=== PATIENT | male | born 1970 | race Caucasian/White ===

== ENCOUNTER 2019-09-23 08:40 | Day surgery (SDC) | payer BC, OTHER ==
[2019-09-21 12:15] VITALS: BMI 23.9
[~2019-09-23 08:40] MED LIST: LACTATED RINGERS 1,000 ML IV SCH; LIDOCAINE 1% (10MG/ML) FOR IV START INTRADERMA PRN
[2019-09-23 08:55] VITALS: RESP 16; TEMP 97.8
[2019-09-23] MEDS ORDERED: PROPOFOL 10 MG/ML 20 ML VIAL IV ONE (09:30)
--- NOTE | 2019-09-23 09:49 | P.PCN ---
Date of Procedure: 09/23/19 Procedure(s) Performed: BRIEF HISTORY: Patient is a 48-year-old pleasant white male scheduled for an elective colonoscopy as a part of screening for colorectal neoplasia. PROCEDURE PERFORMED: Colonoscopy. PREOPERATIVE DIAGNOSIS: Screening for colon cancer. IV sedation per Anesthesia. PROCEDURE: After informed consent was obtained, the patient, was brought into the endoscopy unit. IV sedation was administered by Anesthesia under continuous monitoring. Digital rectal examination was normal. Initially the Olympus CF-160 flexible video colonoscope was then inserted in the rectum, gradually advanced into the cecum without any difficulty. Careful examination was performed as the scope was gradually being withdrawn. Ileocecal valve and the appendiceal orifice were visualized and appeared normal. Prep was excellent. Mucosa of the cecum, ascending colon, transverse colon, descending colon, sigmoid colon, and rectum appeared normal. Retroflexion was performed in the rectum and no lesions were seen. The patient tolerated the procedure well. IMPRESSION: Normal-appearing colon from rectum to cecum with no evidence of colorectal neoplasia RECOMMENDATIONS: Findings of this examination were discussed with the patient as well as his family. He was advised to have a repeat screening colonoscopy in 10 years.
[2019-09-23 10:11] VITALS: BP 107/73; PULSE 78
== END 2019-09-23 10:26 | disposition home or self-care (01) ==
LOC: ORWHC2ENDO 08:40
PROVIDERS: ATTEND Internal Medicine Gastroenterology
DX: Z12.11 Encounter for screening for malignant neoplasm of colon (principal)
CPT/HCPCS: J2704; G0121

== ENCOUNTER 2021-08-31 12:16 | Observation (INO) | payer OTHER ==
[2021-08-31] MEDS ORDERED: ASPIRIN 81 MG PO STA (12:38)
[2021-08-31] MEDS ORDERED: NITROGLYCERIN SL TABS 0.4 MG TAB SUBLINGUAL STA ×3 (12:38)
--- NOTE | 2021-08-31 12:40 | ED ---
General Adult HPI - General Chief complaint: Chest Pain Stated complaint: chest pain Time Seen by Provider: 08/31/21 12:35 Source: patient, RN notes reviewed Mode of arrival: ambulatory Limitations: no limitations - History of Present Illness Initial comments: Patient is a pleasant 50-year-old male presenting to the emergency department with concerns with chest discomfort. Onset of symptoms was for 5 days ago. Symptoms have been intermittent. Discomfort is currently 7/10. Discomfort feels like a dull/ache. There is some radiation towards the back. Minimal associated dyspnea. No nausea. No diaphoresis. No history of similar symptoms previously. - Related Data Home Medications Medication Instructions Recorded Confirmed No Known Home Medications 09/21/19 09/23/19 Allergies Allergy/AdvReac Type Severity Reaction Status Date / Time No Known Allergies Allergy Verified 08/31/21 12:24 Review of Systems ROS Statement: Those systems with pertinent positive or pertinent negative responses have been documented in the HPI. ROS Other: All systems not noted in ROS Statement are negative. Constitutional: Denies: fever Eyes: Denies: eye pain ENT: Denies: ear pain Respiratory: Reports: as per HPI. Denies: cough Cardiovascular: Reports: as per HPI, chest pain Endocrine: Denies: fatigue Gastrointestinal: Denies: abdominal pain Genitourinary: Denies: dysuria Musculoskeletal: Reports: as per HPI Skin: Denies: rash Neurological: Denies: weakness Past Medical History Past Medical History: No Reported History History of Any Multi-Drug Resistant Organisms: None Reported Past Surgical History: Orthopedic Surgery Additional Past Surgical History / Comment(s): ARTHROSCOPY LEFT KNEE Past Anesthesia/Blood Transfusion Reactions: No Reported Reaction Past Psychological History: No Psychological Hx Reported Past Alcohol Use History: Occasional Past Drug Use History: None Reported - Past Family History Mother Family Medical History: No Reported History General Exam Limitations: no limitations General appearance: alert, in no apparent distress Head exam: Present: normocephalic Eye exam: Present: normal appearance Neck exam: Present: normal inspection Respiratory exam: Present: normal lung sounds bilaterally. Absent: chest wall tenderness Cardiovascular Exam: Present: regular rate, normal rhythm, normal heart sounds Expanded Peripheral pulses: 2+: Radial (R), Radial (L), Posterior Tibialis (R), Posterior Tibialis (L) GI/Abdominal exam: Present: soft. Absent: tenderness Extremities exam: Present: normal inspection. Absent: pedal edema, calf tenderness Neurological exam: Present: alert Psychiatric exam: Present: normal affect, normal mood Skin exam: Present: normal color Course Vital Signs 08/31/21 08/31/21 12:20 13:24 Temperature 98.0 F 97.8 F Pulse Rate 95 72 Respiratory 16 18 Rate Blood Pressure 132/68 115/75 O2 Sat by Pulse 97 Oximetry EKG Findings - EKG Comments: EKG Findings:: Sinus rhythm with rate of 95. WI 165. WI is 100. QT 365. QTC 418. Right axis. Incomplete right bundle branch block. No acute ST change. Medical Decision Making - Medical Decision Making Patient reevaluated. Patient and family updated. Patient improved with nitroglycerin. Dr. Zimmerman has been paged for admission covering Dr. Jasso. - Lab Data Result diagrams: 08/31/21 12:53 08/31/21 12:53 Lab Results 08/31/21 08/31/21 08/31/21 Range/Units 12:53 12:53 12:53 WBC 9.5 (3.8-10.6) k/uL RBC 5.16 (4.30-5.90) m/uL Hgb 15.2 (13.0-17.5) gm/dL Hct 47.6 (39.0-53.0) % MCV 92.3 (80.0-100.0) fL MCH 29.4 (25.0-35.0) pg MCHC 31.9 (31.0-37.0) g/dL RDW 11.8 (11.5-15.5) % Plt Count 320 (150-450) k/uL MPV 7.9 Neutrophils % 71 % Lymphocytes % 20 % Monocytes % 5 % Eosinophils % 1 % Basophils % 1 % Neutrophils # 6.8 (1.3-7.7) k/uL Lymphocytes # 1.9 (1.0-4.8) k/uL Monocytes # 0.4 (0-1.0) k/uL Eosinophils # 0.1 (0-0.7) k/uL Basophils # 0.1 (0-0.2) k/uL PT 10.2 (9.0-12.0) sec INR 0.9 (<1.2) APTT 22.8 (22.0-30.0) sec D-Dimer 0.36 (<0.60) mg/L FEU Sodium 139 (137-145) mmol/L Potassium 3.9 (3.5-5.1) mmol/L Chloride 107 (98-107) mmol/L Carbon Dioxide 26 (22-30) mmol/L Anion Gap 6 mmol/L BUN 15 (9-20) mg/dL Creatinine 0.97 (0.66-1.25) mg/dL Est GFR (CKD-EPI)AfAm >90 (>60 ml/min/1.73 sqM) Est GFR (CKD-EPI)NonAf >90 (>60 ml/min/1.73 sqM) Glucose 102 H (74-99) mg/dL Calcium 9.9 (8.4-10.2) mg/dL Magnesium 2.0 (1.6-2.3) mg/dL Total Bilirubin 0.4 (0.2-1.3) mg/dL AST 22 (17-59) U/L ALT 22 (4-49) U/L Alkaline Phosphatase 82 (38-126) U/L Troponin I (0.000-0.034) ng/mL Total Protein 7.2 (6.3-8.2) g/dL Albumin 4.4 (3.5-5.0) g/dL Amylase 98 (30-110) U/L Lipase 156 (23-300) U/L 08/31/21 Range/Units 12:53 WBC (3.8-10.6) k/uL RBC (4.30-5.90) m/uL Hgb (13.0-17.5) gm/dL Hct (39.0-53.0) % MCV (80.0-100.0) fL MCH (25.0-35.0) pg MCHC (31.0-37.0) g/dL RDW (11.5-15.5) % Plt Count (150-450) k/uL MPV Neutrophils % % Lymphocytes % % Monocytes % % Eosinophils % % Basophils % % Neutrophils # (1.3-7.7) k/uL Lymphocytes # (1.0-4.8) k/uL Monocytes # (0-1.0) k/uL Eosinophils # (0-0.7) k/uL Basophils # (0-0.2) k/uL PT (9.0-12.0) sec INR (<1.2) APTT (22.0-30.0) sec D-Dimer (<0.60) mg/L FEU Sodium (137-145) mmol/L Potassium (3.5-5.1) mmol/L Chloride (98-107) mmol/L Carbon Dioxide (22-30) mmol/L Anion Gap mmol/L BUN (9-20) mg/dL Creatinine (0.66-1.25) mg/dL Est GFR (CKD-EPI)AfAm (>60 ml/min/1.73 sqM) Est GFR (CKD-EPI)NonAf (>60 ml/min/1.73 sqM) Glucose (74-99) mg/dL Calcium (8.4-10.2) mg/dL Magnesium (1.6-2.3) mg/dL Total Bilirubin (0.2-1.3) mg/dL AST (17-59) U/L ALT (4-49) U/L Alkaline Phosphatase (38-126) U/L Troponin I <0.012 (0.000-0.034) ng/mL Total Protein (6.3-8.2) g/dL Albumin (3.5-5.0) g/dL Amylase (30-110) U/L Lipase (23-300) U/L - Radiology Data Radiology results: image reviewed (Chest x-ray shows no acute process) Disposition Clinical Impression: Chest pain Disposition: ADMITTED IP TO THIS [facility] Is patient prescribed a controlled substance at d/c from ED?: No Referrals: Phoenix Jasso MD [Primary Care Provider] - 1-2 days Time of Disposition: 14:07
[2021-08-31 13:08] LABS: Basophils # (A) 0.1 k/uL (0-0.2); Basophils % (A) 1 %; Eosinophils # (A) 0.1 k/uL (0-0.7); Eosinophils % (A) 1 %; HCT 47.6 % (39.0-53.0); HGB 15.2 gm/dL (13.0-17.5); Lymphocytes # (A) 1.9 k/uL (1.0-4.8); Lymphocytes % (A) 20 %; MCH 29.4 pg (25.0-35.0); MCHC 31.9 g/dL (31.0-37.0); MCV 92.3 fL (80.0-100.0); Mean Platelet Volume 7.9; Monocytes # (A) 0.4 k/uL (0-1.0); Monocytes % (A) 5 %; Neutrophils # (A) 6.8 k/uL (1.3-7.7); Neutrophils % (A) 71 %; Platelet Count 320 k/uL (150-450); RBC 5.16 m/uL (4.30-5.90); RDW 11.8 % (11.5-15.5); WBC 9.5 k/uL (3.8-10.6)
[2021-08-31 13:21] LABS: INR 0.9 (<1.2); Prothrombin Time 10.2 sec (9.0-12.0)
[2021-08-31 13:22] LABS: Partial Thromboplastin Time 22.8 sec (22.0-30.0)
[2021-08-31 13:28] LABS: ALT 22 U/L (4-49); AST 22 U/L (17-59); African American GFR (CKD) >90 (>60 ml/min/1.73 sqM); Albumin 4.4 g/dL (3.5-5.0); Alkaline Phosphatase 82 U/L (38-126); Amylase 98 U/L (30-110); Anion Gap 6 mmol/L; Blood Urea Nitrogen 15 mg/dL (9-20); Calcium 9.9 mg/dL (8.4-10.2); Carbon Dioxide 26 mmol/L (22-30); Chloride 107 mmol/L (98-107); Glucose 102 mg/dL (74-99); Lipase 156 U/L (23-300); Non-African American GFR(CKD) >90 (>60 ml/min/1.73 sqM); Potassium 3.9 mmol/L (3.5-5.1); Sodium 139 mmol/L (137-145); Total Bilirubin 0.4 mg/dL (0.2-1.3); Total Protein 7.2 g/dL (6.3-8.2)
--- NOTE | 2021-08-31 13:46 | XR ---
EXAMINATION TYPE: XR chest 2V DATE OF EXAM: 08/31/2021 1:23 PM COMPARISON: None TECHNIQUE: XR chest 2V Frontal and lateral views of the chest. CLINICAL INDICATION:Male, 50 years old with history of Chest Pain; FINDINGS: Lungs/Pleura: There is no evidence of pleural effusion, focal consolidation, or pneumothorax. Pulmonary vascularity: Unremarkable. Heart/mediastinum: Cardiomediastinal silhouette is unremarkable. Musculoskeletal: No acute osseous pathology. IMPRESSION: No acute cardiopulmonary disease/process.
[2021-08-31] MEDS ORDERED: NITROGLYCERIN SL TABS 0.4 MG TAB SUBLINGUAL PRN (14:08)
[2021-08-31] MEDS: NITROGLYCERIN OINT 1 INCH/GM PACKET TOPICAL SCH ×3 (15:07→19:35)
[2021-09-01] MEDS: NITROGLYCERIN OINT 1 INCH/GM PACKET TOPICAL SCH (02:15)
[2021-09-01 07:41] VITALS: BP 110/68; PULSE 79; RESP 16; TEMP 97.5
--- NOTE | 2021-09-01 08:02 | P.CONS ---
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 He did have a stress test done approximately 5 years ago at [facility] which he relates was normal. Patient states that since Thursday he's been having episodes of chest pain on the left side of his sternum and he thought it was related to stress from his job and anxiety. Pain radiates to his back. No radiation to his neck, jaw, arms. He denies having any shortness of breath, no palpitations, no lightheadedness or dizziness and no nausea. He did note yesterday that he was at the grocery store he was walking through the store and he felt some minimal dyspnea not to the point that he needed to sit down with this was new for him. 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 Patient received one nitroglycerin sublingually with improvement of his pain but also states that mostly caused a headache. The patient also states that on Thursday he was working and had possible bruising-type injury to the left side of his chest which is different than the pain he is experiencing within his chest. The patient denies any family history of coronary artery disease. He has been a nonsmoker. He drinks greater than 6 beers every weekend and several days of the week. Patient came into [facility] emergency center for evaluation. He was found to be afebrile, heart rate 95, blood pressure 132/60, pulse ox 97% on room air. EKG revealed Troponin negative on 3 draws. CBC and CMP unremarkable. Chest x-ray reveals no acute cardiopulmonary process. Review Of Systems: Constitutional: No fever, no chills. No weakness, fatigue or lethargy. EENT: No headache. No dizziness. Lungs: No shortness of breath, cough, no sputum production. No wheezing. Cardiovascular: No chest pain, no lower extremity edema. No palpitations. No paroxysmal nocturnal dyspnea. No orthopnea. No lightheadedness or dizziness. No syncopal episodes. Abdominal: No abdominal pain. No nausea, vomiting. No diarrhea. No constipation. No bloody or tarry stools.. No loss of appetite. Genitourinary: No dysuria.. No urinary retention. Musculoskeletal: No myalgias. No muscle weakness, no gait dysfunction, no frequent falls. No back pain. No neck pain. Integumentary: No wounds, no lesions. No rash or pruritus. No unusual bruising. Neurologic: No aphasia. No facial droop. No change in mentation. No head injury. No headache. No paralysis. No paresthesia. Psychiatric: No depression. No anxiety. Endocrine: No abnormal blood sugars. Physical examination: Gen: This is a 50-year-old male. He is resting in bed appears to be comfortable and in no acute distress. HEENT: Head is atraumatic, normocephalic. Pupils equal, round. Sclerae is anicteric. NECK: Supple. No JVD. No lymphadenopathy. No thyromegaly. LUNGS: Clear to auscultation. No wheezes or rhonchi. No intercostal retractions. HEART: Regular rate and rhythm. No murmur. No chest wall tenderness. ABDOMEN: Soft. Bowel sounds are present. No masses. No tenderness. EXTREMITIES: No pedal edema. No calf tenderness. Dorsalis pedis +2 bilaterally. NEUROLOGICAL: Patient is awake, alert and oriented x3. Cranial nerves 2 through 12 are grossly intact. Assessment: Chest pain, acute coronary syndrome ruled out Mild dyspnea with exertion Alcohol abuse Plan: Recommend follow-up with his PCP for scheduling of outpatient stress test and echocardiogram Alcohol abstinence discussed with the patient Patient is cleared for discharge home Thank you kindly for this consultation. Nurse practitioner note has been reviewed, I agree with documented findings and plan of care. Patient was seen and examined. Past Medical History Past Medical History: No Reported History History of Any Multi-Drug Resistant Organisms: None Reported Past Surgical History: Orthopedic Surgery Additional Past Surgical History / Comment(s): ARTHROSCOPY LEFT KNEE Past Anesthesia/Blood Transfusion Reactions: No Reported Reaction Past Psychological History: No Psychological Hx Reported Smoking Status: Never smoker Past Alcohol Use History: Occasional Past Drug Use History: None Reported - Past Family History Mother Family Medical History: No Reported History Medications and Allergies Home Medications Medication Instructions Recorded Confirmed Type No Known Home Medications 09/21/19 08/31/21 History Allergies Allergy/AdvReac Type Severity Reaction Status Date / Time No Known Allergies Allergy Verified 08/31/21 14:18 Physical Exam Vitals: Vital Signs Temp Pulse Pulse Resp BP BP Pulse Ox 09/01/21 01:27 97.7 F 64 18 104/68 97 08/31/21 18:54 97.7 F 68 20 122/80 96 08/31/21 14:43 97.8 F 71 14 123/81 98 08/31/21 13:24 97.8 F 72 18 115/75 08/31/21 12:20 98.0 F 95 16 132/68 97 Intake and Output 08/31/21 09/01/21 09/01/21 22:59 06:59 14:59 Intake Total 118 Balance 118 Intake: Oral 118 Other: Voiding Method Toilet Toilet # Voids 1 2 Results CBC & Chem 7: 08/31/21 12:53 08/31/21 12:53 Labs: Abnormal Lab Results - Last 24 Hours (Table) 08/31/21 Range/Units 12:53 Glucose 102 H (74-99) mg/dL
--- NOTE | 2021-09-01 08:14 | P.HPIM ---
History of Present Illness H&P Date: 09/01/21 History of present illness This is a 50-year-old male patient of Dr. Jasso with no previous significant past medical history or his cardiac history. He does not take any medications. 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 Pain radiated to the back. Denies any pain to the neck or jaw bilateral arms. She denied any shortness of breath with activity, no palpitations, no nausea or vomiting. While patient was at the grocery store yesterday he began to not feel right having some chest discomfort and shortness of breath. Patient felt that he needed to be examined due to the continuation of the episodes. Patient is lifelong nonsmoker, denies diabetes. He does drink greater than 6 beers 3-4 days a week. Patient was diagnosed with Covid less than 3 months ago. At this time patient is found resting complaints and bed in no acute distress. Patient denies any chest pain difficulty breathing or palpitations at this time. No dizziness or lightheadedness nausea or vomiting. Troponin 3 negative. All other labs unremarkable. Chest x-ray reveals no acute cardiopulmonary process. Patient is afebrile, heart rate 95, blood pressure 132/60, pulse ox 97% on room air. EKG shows bundle branch block Review Of Systems: Constitutional: No fever, no chills, no night sweats. No weight change. No weakness, fatigue or lethargy. No daytime sleepiness. EENT: No headache. No blurred vision or double vision, no loss of vision. No loss of Hearing, no ringing in the ears, no dizziness. No nasal drainage or congestion. No epistaxis. No sore throat. Lungs: Reports shortness of breath resolved, cough, no sputum production. No wheezing. Cardiovascular: Reports chest pain resolved, no lower extremity edema. No palpitations. No paroxysmal nocturnal dyspnea. No orthopnea. No lightheadedness or dizziness. No syncopal episodes. Abdominal: no abdominal discomfort. No nausea, vomiting. no diarrhea. No constipation. No bloody or tarry stools. no loss of appetite. Genitourinary: No dysuria, increased frequency, urgency. No urinary retention. Musculoskeletal: No myalgias. No muscle weakness, no gait dysfunction, no frequent falls. No back pain. No neck pain. Integumentary: No wounds, no lesions. No rash or pruritus. No unusual bruising. No change in hair or nails. Neurologic: No aphasia. No facial droop. No change in mentation. No head injury. No headache. No paralysis. No paresthesia. Psychiatric: No depression. No anxiety. No mood swings. Endocrine: No abnormal blood sugars. No weight change. No excessive sweating or thirst. 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 He is , with no children. Lifelong nonsmoker, EtOH intake of greater than 6 beers 3-4 times a week. Family history: Father is alive with history of coronary artery disease back pain, one brother and one sister healthy. Mom alive and healthy. Physical examination General Appearance: Alert, cooperative, no distress, this is a 50-year-old gentleman resting comfortably in bed appears stated age. Neck HEENT: Supple, no lymphadenopathy, no thyroid enlargement, no carotid bruits. Lungs: Clear to auscultation without crackles or wheezes no rhonchi, no deformity. Chest Wall: Chest wall normal expansion with deep inspiration no tenderness and no deformity was found on exam, no costochondral pain or discomfort. Heart: Regular rate and rhythm, S1, S2 normal, no murmur, rub or gallop. Back: Symmetric, no curvature, ROM normal, no CVA tenderness. Abdomen: Soft, non-tender, no rebound or rigidity, no hepatosplenomegaly. Extremities: Extremities normal, atraumatic, no cyanosis or edema. Pulses: 2+ and symmetric. Skin: Skin color, texture, tugor normal, no rashes or lesions. Neurologic: Alert oriented x3 cranial nerves II through XII intact, no motor deficit, no abnormal balance or gait Assessment and plan 1. Atypical chest pain rule out acute coronary syndrome. Negative cardiac enzymes, cardiology consult appreciated, EKG shows bundle branch block. Echocardiogram and stress test can be completed outpatient setting. 2. Mild dyspnea with exertion. As noted above 3. Alcohol abuse. Consult related to decreasing alcohol intake 4. DVT prophylaxis. Ambulation 5. GI prophylaxis. Protonix Discharge plan: Home today Impression and plan of care have been directed as dictated by the signing physician. Jimena Pandya nurse practitioner acting as scribe for signing physician. Past Medical History Past Medical History: No Reported History History of Any Multi-Drug Resistant Organisms: None Reported Past Surgical History: Orthopedic Surgery Additional Past Surgical History / Comment(s): ARTHROSCOPY LEFT KNEE Past Anesthesia/Blood Transfusion Reactions: No Reported Reaction Past Psychological History: No Psychological Hx Reported Smoking Status: Never smoker Past Alcohol Use History: Occasional Past Drug Use History: None Reported - Past Family History Mother Family Medical History: No Reported History Medications and Allergies Home Medications Medication Instructions Recorded Confirmed Type No Known Home Medications 09/21/19 08/31/21 History Allergies Allergy/AdvReac Type Severity Reaction Status Date / Time No Known Allergies Allergy Verified 08/31/21 14:18 Physical Exam Vitals: Vital Signs Temp Pulse Pulse Resp BP BP Pulse Ox 09/01/21 07:00 97.5 F L 79 16 110/68 97 09/01/21 01:27 97.7 F 64 18 104/68 97 08/31/21 18:54 97.7 F 68 20 122/80 96 08/31/21 14:43 97.8 F 71 14 123/81 98 08/31/21 13:24 97.8 F 72 18 115/75 08/31/21 12:20 98.0 F 95 16 132/68 97 Intake and Output 08/31/21 09/01/21 09/01/21 22:59 06:59 14:59 Intake Total 118 Balance 118 Intake: Oral 118 Other: Voiding Method Toilet Toilet Toilet # Voids 1 2 Results CBC & Chem 7: 08/31/21 12:53 08/31/21 12:53 Labs: Abnormal Lab Results - Last 24 Hours (Table) 08/31/21 Range/Units 12:53 Glucose 102 H (74-99) mg/dL Thrombosis Risk Factor Assmnt - Choose All That Apply Each Factor Represents 1 point: Age 41-60 years Thrombosis Risk Factor Assessment Total Risk Factor Score: 1 Thrombosis Risk Factor Assessment Level: Low Risk
[2021-09-01] MEDS ORDERED: ASPIRIN 325 MG TAB PO SCH (09:00)
[2021-09-01 11:05] LABS: Chol/HDL Ratio 2.83 Ratio; LDL Cholesterol,Calculated 93.7 mg/dL (0.0-131.0)
--- NOTE | 2021-09-01 12:05 | P.DS ---
Providers Date of admission: 08/31/21 14:08 Attending physician: Sami Zimmerman Consults: 08/31/21 14:08 Consult Physician Urgent Consulting Provider: Dara Avery Consult Reason/Comments: cp Do you want consulting provider notified?: Yes Primary care physician: Phoenix Jasso [facility] Course: This is a 50-year-old male patient of Dr. Jasso with no previous significant past medical history or his cardiac history. He does not take any medications. 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 Pain radiated to the back. Denies any pain to the neck or jaw bilateral arms. She denied any shortness of breath with activity, no palpitations, no nausea or vomiting. While patient was at the grocery store yesterday he began to not feel right having some chest discomfort and shortness of breath. Patient felt that he needed to be examined due to the continuation of the episodes. Patient is lifelong nonsmoker, denies diabetes. He does drink greater than 6 beers 3-4 days a week. Patient was diagnosed with Covid less than 3 months ago. At this time patient is found resting complaints and bed in no acute distress. Patient denies any chest pain difficulty breathing or palpitations at this time. No dizziness or lightheadedness nausea or vomiting. Troponin 3 negative. All other labs unremarkable. Chest x-ray reveals no acute cardiopulmonary process. Patient is afebrile, heart rate 95, blood pressure 132/60, pulse ox 97% on room air. EKG shows bundle branch block Discharge diagnosis: 1. Atypical chest pain rule out acute coronary syndrome. 2. Mild dyspnea with exertion. 3. Alcohol abuse. Discharge disposition: Home today Impression and plan of care have been directed as dictated by the signing physician. Jimena Pandya nurse practitioner acting as scribe for signing physician. Plan - Discharge Summary New Discharge Prescriptions: No Action No Known Home Medications Discharge Medication List No Known Home Medications 09/21/19 [History] Follow up Appointment(s)/Referral(s): Phoenix Jasso MD [Primary Care Provider] - 1-2 days Patient Instructions/Handouts: Chest Pain (DC) Activity/Diet/Wound Care/Special Instructions: Make sure you follow up and get a stress test and echo out pt Discharge Disposition: HOME SELF-CARE
== END 2021-09-01 09:11 | disposition home or self-care (01) ==
LOC: EC 12:16 → 6NMEDSUR 14:08
PROVIDERS: ADMIT Internal Medicine Geriatric Medicine; ATTEND Internal Medicine Geriatric Medicine
DX: R07.89 Other chest pain (principal); R06.09 Other forms of dyspnea; F10.10 Alcohol abuse, uncomplicated; Z86.16 Personal history of COVID-19; F41.9 Anxiety disorder, unspecified; I45.4 Nonspecific intraventricular block; I45.10 Unspecified right bundle-branch block; Z71.41 Alcohol abuse counseling and surveillance of alcoholic; Z82.49 Family history of ischemic heart disease and other diseases of the circulatory system; Z84.89 Family history of other specified conditions
CPT/HCPCS: 99285; 36415; 93005; 85379; 80061; 80053; 82150; 83690; 83735; 84484; 85025; 85610; 85730; 71046; G0378 ×2